=== PATIENT | female | born 1990 | race African-American/Black ===

== ENCOUNTER 2023-08-23 15:44 | Emergency (ER) | payer MEDICAID, OTHER ==
[~2023-08-23] VITALS: Ht 160 cm; Wt 97.0 kg
[2023-08-23] MEDS ORDERED: ONDANSETRON 4MG ODT PO STA (15:51)
[2023-08-23 15:57] VITALS: BP 115/74; PULSE 86; RESP 16; TEMP 102; O2SAT 100
[2023-08-23 17:15] LABS: BASOPHILS % 0.5 % (0.0-2.0); HEMATOCRIT. 45.9 % (36.0-48.0); HEMOGLOBIN. 15.8 g/dL (12.0-16.0); MEAN CORPUSCULAR HEMOGLOBIN 31.7 pg (28.0-32.0); MEAN CORPUSCULAR HGB CONC 34.4 g/dL (31.0-37.0); MEAN CORPUSCULAR VOLUME 92.3 fL (81.0-99.0); MEAN PLATELET VOLUME 8.3 fl (7.4-10.4); MONOCYTES % 7.4 % (2.0-8.0); NEUTROPHILS % 76.1 % (40.0-76.0); PLATELET 379 x1000/uL (130-400); RED BLOOD CELL COUNT 4.97 mill/uL (4.2-5.4); RED CELL DISTRIBUTION WIDTH 13.8 % (11.6-14.6); WHITE BLOOD COUNT 16.7 x1000/uL (4.5-11.0)
[2023-08-23 17:38] LABS: HCG SCREEN POSITIVE
[2023-08-23 17:47] LABS: ALANINE AMINOTRANSFERASE 18 IU/L (10-49); ALBUMIN 4.9 g/dL (3.2-4.8); ASPARTATE AMINOTRANSFERASE 14 IU/L (<34); B-HCG QUANTITATIVE 45748 mIU/mL (<3); BILIRUBIN TOTAL 0.6 mg/dL (0.1-1.0); CALCIUM 10.1 mg/dL (8.7-10.4); CARBON DIOXIDE 26 mEq/L (21-32); CHLORIDE 97 mEq/L (98-107); CREATININE 0.7 mg/dL (0.6-1.0); GLUCOSE 99 mg/dL (70-105); PROTEIN TOTAL 8.9 g/dL (6.0-8.3); SODIUM 136 mEq/L (136-145); UREA NITROGEN BLOOD 15 mg/dL (9-23)
[2023-08-23] MEDS ORDERED: ONDA4TAB11 PO (19:19)
== END 2023-08-23 19:49 | disposition left against medical advice (07) ==
LOC: ER 15:44
DX: O21.9 Vomiting of pregnancy, unspecified (principal); Z3A.01 Less than 8 weeks gestation of pregnancy
CPT/HCPCS: 99283; 80053; 84703; 84702; 85025; 36415; Q0162